=== PATIENT | male | born 1945 | race Native Hawaiian/Other Pacific Islander ===

== ENCOUNTER 2019-12-27 08:32 | Outpatient (CLI) | payer OTHER ==
[~2019-12-27 08:32] MED LIST: ALLO300T23 PO; ASA LO-DOSE81 MG PO; CARAFATE1 GM PO; CYCL10TA35 PO; DICY20TA34 PO; ENALAPRIL10 MG PO; FEXOFENADINE H180 MG PO; FOLIC ACID400 MCG PO; LANTUS100 MG/ML SC; LEVO0.0218 PO; LEVOTHROID50 MCG PO; LODRANE D1 CAP OR; MECLIZINE25 MG OR; METF500T PO; METH25IN13 INJ; METO50TA63 PO; METOPROLOL25 M1 OR; NEXIUM10 MG PO; OMEPRAZOLE40 MG OR; ONDA4TAB3 PO; POLY GLYCOL3350 M1 XX; SERT50TA PO; TAMS0.4C PO; TRAM50TA PO; TRAZ50TA36 PO
== END 2019-12-27 21:46 | disposition home or self-care (01) ==
LOC: RAD 08:32
DX: M85.89 Other specified disorders of bone density and structure, multiple sites (principal)